=== PATIENT | female | born 1955 | race Caucasian/White ===

== ENCOUNTER 2018-08-30 05:55 | Day surgery (SDC) | payer OTHER ==
--- NOTE | 2018-03-22 07:58 | PREOPHP ---
DATE OF ADMISSION: 03/22/2018 HISTORY OF PRESENT ILLNESS: This is a 62-year-old lady, 4, para 2 with spontaneous and 1 stillborn. Her last normal menstrual period, according to the patient, is in 2016. She was admitted for D and C, hysteroscopy, and suction curettage. This patient was having on-and-off vaginal bleeding; and she is taking control pills since 1993 for this problem; and when the patient came to me, I told her to stop taking the control pills; and because of the bleeding, she had endometrial biopsy attempted but the cervix was stenotic, so she was admitted for the above procedures. The procedures were explained to the patient, and she understood everything totally. The risks, benefits, and alternatives were discussed with her as well. She is 4, para 2 with spontaneous abortions. PAST MEDICAL HISTORY: She has a history of multiple sclerosis. PAST SURGICAL HISTORY: She had breast implant. She had x2. She had back surgery. She had a tummy tuck. FAMILY HISTORY: Cancer, heart disease, diabetes, and hypertension. CURRENT MEDICATIONS: On review of current medications, she is on: 1. ____. 2. Lexapro. 3. Copaxone. REVIEW OF SYSTEMS: CARDIOVASCULAR: No chest pains. RESPIRATORY: No cough. GASTROINTESTINAL: No diarrhea. No vomiting. GENITOURINARY: No dysuria. PHYSICAL EXAMINATION: GENERAL: Reveals a conscious, coherent lady, and in no acute distress. VITAL SIGNS: Her blood pressure 120/80, pulse rate 80 per minute, respirations 16 per minute. BREASTS, HEART, AND LUNGS: Within normal limits. ABDOMEN: Soft. No organomegaly. PELVIC: Revealed the cervix to be firm, uterus of normal size, and adnexa were negative for masses. RECTAL: Exam confirmed the pelvic findings. EXTREMITIES: No pedal edema. ADMITTING DIAGNOSIS: Postmenopausal bleeding. The patient was planned to have a D and C, hysteroscopy, and suction curettage. The procedures were explained to the patient, and she understood everything totally. The risks, benefits, and alternatives were discussed with her as well. Endometrial biopsy, as mentioned, was attempted in the clinic but the cervix was stenotic. Dictated By: MANDO HUDDLESTON/JAYY Conf#: [id number] DID#: [id number] MTDD
[2018-08-29 15:12] VITALS: BMI 28.8
[2018-08-30] VITALS (8 sets, daily range): BP systolic 51–119; BP diastolic 32–65; PULSE 63–78; RESP 16–25; Ht 162.6 cm; Wt 74.2 kg
[~2018-08-30] VITALS: Ht 162.6 cm; Wt 74.2 kg
--- NOTE | 2018-08-30 05:44 | PREOPHP ---
DATE OF ADMISSION: 08/30/2018 HISTORY OF PRESENT ILLNESS: This is a 63-year-old lady 2, para 2. Her last normal menstrual period, according to the patient, was in 08/2017. At 60-year-old that the patient had been on hormo nal replacement therapy given by another doctor. The patient had been on control pills given b y her primary care doctor and, when she stopped the pill, she started to have vaginal bleeding. She had attempted 3 times endometrial biopsy, but the cervix was stenotic and, finally, the patient decid ed to go for the D and C. She was advised to stop any hormonal treatment. PAST PERSONAL HISTORY: No history of TB or asthma. ALLERGIES: NO ALLERGIES. PAST MEDICAL HISTORY: The patient has a history of multiple sclerosis. PAST SURGICAL HISTORY: She has breast implant. She had 2 C-sections. She has a back surgery. She had a tummy tuck, . FAMILY HISTORY: Cancer, heart disease, diabetes and hypertension. She is 2, para 2 with 2 c esarean sections. REVIEW OF SYSTEMS: CARDIOVASCULAR: No chest pains. RESPIRATORY: No cough. GASTROINTESTINAL: No diarrhea, no vomiting. OBSTETRICAL HISTORY: She is 4, para 2, 1 spontaneous , and 1 stillborn at 25 weeks. She had 2 sections. GYNECOLOGIC HISTORY: She had menarche at the age of 13, every 28 days interval, 3 to 4 days duration , and moderate in amount. REVIEW OF SYSTEMS: CARDIOVASCULAR: No chest pains. RESPIRATORY: No cough. GASTROINTESTINAL: No diarrhea, no vomiting. GENITOURINARY: No dysuria. PHYSICAL EXAMINATION: GENERAL: Reveals a conscious, coherent lady, in no acute distress. VITAL SIGNS: Blood pressure 130/80, pulse rate 80 per minute, respirations 16 per minute. BREASTS, HEART AND LUNGS: Within normal limits. ABDOMEN: Soft. No organomegaly. PELVIC: Revealed the cervix to be firm, uterus of normal size, adnexa were negative for masses. RECTAL: Confirmed the pelvic findings. EXTREMITIES: No pedal edema. ADMITTING DIAGNOSIS: Postmenopausal bleeding. The patient was planned to have a dilation and curett age, hysteroscopy and suction curettage. The procedures were explained to the patient and she unders tood everything totally. The risks, benefits and alternatives were discussed with her as well. Dictated By: MANDO HUDDLESTON/JAYY Conf#: [id number] [facility]#: [id number]
[~2018-08-30 05:55] MED LIST: ALPR0.5T PO; ASPI-1044 PO; CRAN450C PO; ESCI10TA PO; GLAT40SY SQ; IBUP800T48 PO; LORA-444 PO; NORE-17 PO; OMEG300C3 PO; SIMV5TAB14 PO; TOPI25CA PO; TRAM100T33 PO
--- NOTE | 2018-08-30 06:47 | PREAC ---
Date/Time of Note Date/Time of Note DATE: 08/30/18 TIME: 06:46 Anesthesia Eval and Record Evaluation Time Pre-Procedure Interview DATE: 08/30/18 TIME: 06:46 Age 63 Sex female NPO: 8 hrs Preoperative diagnosis postmenopausal bleeding Planned procedure D and C, hysteroscopy Past Medical History Past Medical History: Includes Cardio: Dyslipidemia Neuro: Other (multiple sclerosis) Psych: Depression, Anxiety Surgery & Anesthesia Issues No known issue Meds Anticoagulation: No Beta Johanna within 24 hr: No Reason Beta Johanna not given: Pt. not on B-Johanna Reported Medications Glatiramer Acetate (Copaxone) 40 Mg/1 Ml Syringe, 40 MG SQ THREE TIMES/WEEK, SYR 01/07/16 Cranberry Fruit Concentrate (CRANBERRY) 450 Mg Capsule, 450 MG PO, CAP 01/07/16 Seymour-3 Fatty Acids (Fish Oil) 300 Mg Capsule, 300 MG PO, CAP 01/07/16 Norethindrone A-E Estradiol (GILDESS) 1 Each Tablet, 1 EACH PO, TAB 01/07/16 Topiramate* (Topamax*) 25 Mg Cap.sprink, 50 MG PO BID, CAP 01/07/16 Ibuprofen* (Motrin*) 800 Mg Tab, 800 MG PO DAILY, TAB 09/25/13 Aspirin Delayed Release (Aspirin Delayed Release) 81 Mg Tablet.dr, 81 MG PO DAILY 09/25/13 Escitalopram Oxalate* (Lexapro*) 10 Mg Tablet, 10 MG PO DAILY 09/25/13 Simvastatin* (Simvastatin*) 5 Mg Tablet, 5 MG PO DAILY 09/25/13 Alprazolam* (Xanax*) 0.5 Mg Tab, 0.5 MG PO HS, TAB 09/25/13 Lorazepam* (Ativan*) 2 Mg Tablet, 1 MG PO HS 09/25/13 Tramadol Hcl* (Tramadol* ER) 100 Mg Tab.er.24h, 50 MG PO TID, TAB 09/25/13 Meds reviewed: Yes Allergies Coded Allergies: latex (Verified Allergy, Unknown, itching, 08/29/18) Allergies Reviewed: Yes Labs/Studies Labs Reviewed: Reviewed by anesthesiologist Blood Bank Test 08/29/18 14:50 Antibody Screen NEGATIVE Blood Type A POSITIVE test: N/A Studies: ECG Pre-procedure Exam Airway: Adequate mouth opening, Adequate thyromental dist Mallampati: Mallampati II Teeth: Normal Lung: Normal Heart: Normal ASA Physical Status ASA physical status: 2 Emergency: None Planned Anesthetic General/MAC: LMA Planned Pain Management Parenteral pain med, Local by surgeon Pre-operative Attestations Prior to commencing anesthesia and surgery, the patient was re-evaluated, there was verification of: *The patient's identity *The results of appropriate recent lab work and preoperative vital signs *The above evaluation not changing prior to induction *Anesthetic plan, risk benefits, alternative and complications discussed with p atient/family; questions answered; patient/family understands, accepts and wishes to proceed. EMMA HANSEN Aug 30, 2018 06:47
[2018-08-30] MEDS ORDERED: LIDOCAINE 2% (SDV) 5 ML INJ ONE (06:58)
[2018-08-30] MEDS ORDERED: PROPOFOL 20 ML ONE (06:58)
[2018-08-30] MEDS ORDERED: ONDANSETRON 4 MG INJ ONE (06:59)
[2018-08-30] MEDS ORDERED: FENTAnyl 50 MCG/ML VIAL ONE (06:59)
[2018-08-30] MEDS ORDERED: MIDAZOLAM 1 MG/ML 2 ML INJ ONE (06:59)
[2018-08-30] MEDS ORDERED: DEXAMETHASONE 4 MG/ML 5 ML INJ ONE (06:59)
[2018-08-30] MEDS ORDERED: CEFAZOLIN 1 GM INJ ONE (06:59)
[2018-08-30] MEDS ORDERED: SIMV5TAB14 PO (07:11)
[2018-08-30] MEDS ORDERED: TOLT2TAB13 PO (07:11)
[2018-08-30] MEDS ORDERED: ESCI20TA PO (07:12)
[2018-08-30] MEDS ORDERED: HYDR200T5 PO (07:12)
[2018-08-30] MEDS ORDERED: SULF500T5 PO (07:12)
[2018-08-30] MEDS ORDERED: FOLI-49 PO (07:13)
[2018-08-30] MEDS ORDERED: TOPI50TA13 PO (07:14)
[2018-08-30] MEDS ORDERED: GLAT40SY SQ (07:15)
[2018-08-30] MEDS ORDERED: ALPR0.5T PO (07:16)
[2018-08-30] MEDS ORDERED: LABETALOL HCL 20MG INJ IV PRN (07:30)
[2018-08-30] MEDS ORDERED: FENTAnyl 50 MCG/ML VIAL IV PRN ×3 (07:30)
[2018-08-30] MEDS ORDERED: ONDANSETRON 4 MG INJ IV PRN (07:30)
[2018-08-30] MEDS ORDERED: OXYCODONE/ACETAMINOPHEN (5/325) TAB PO PRN ×2 (07:30)
--- NOTE | 2018-08-30 08:08 | SIPON ---
Date/Time of Note Date/Time of Note DATE: 08/30/18 TIME: 08:07 Operative Report Preoperative Diagnosis POSTMENOPAUSAL BLEEDING Postoperative Diagnosis POSTMENOPAUSAL BLEEDING Operation/Procedure Performed D&C HYSTEROSCOPY Surgeon see signature line bakery assistant URBAN DESIGNER Anesthesia: general Estimated blood loss: minimal Transfusion Required none Specimen ECC EMC Grafts/Implants none Complications none MANDO FRANCE MD Aug 30, 2018 08:08
[2018-08-30] MEDS ORDERED: ACETAMINOPHEN 325 MG TAB PO PRN (08:30)
--- NOTE | 2018-08-30 09:14 | PAC ---
Date/Time of Note Date/Time of Note DATE: 08/30/18 TIME: 09:13 Post-Anesthesia Notes Post-Anesthesia Note Last documented vital signs Vital Signs Date Temp Pulse Resp B/P (MAP) Pulse Ox O2 O2 Flow FiO2 Time Delivery Rate 08/30/18 97.9 08:39 08/30/18 76 23 98/51 (67) 93 Room Air 08:14 08/30/18 5.0 07:51 Activity: WNL Respiratory function: WNL Cardiovascular function: WNL Mental status: Baseline Pain reasonably controlled: Yes Hydration appropriate: Yes Nausea/Vomiting absent: Yes EMMA HANSEN Aug 30, 2018 09:14
--- NOTE | 2018-08-30 20:35 | OPR ---
DATE OF OPERATION: 08/30/2018 PREOPERATIVE DIAGNOSES: 1. Postmenopausal bleeding. 2. Small fibroid. POSTOPERATIVE DIAGNOSES: 1. Postmenopausal bleeding. 2. Small fibroid. 3. Pending pathology report. SURGEON: Mando Linton MD INTERMEDIATE MANAGER: Sandhya de jesus. ANESTHESIA: General. OPERATION PERFORMED: Hysteroscopy, fractional dilatation and curettage. OPERATIVE TECHNIQUE: Under general anesthesia, the patient was prepped and draped in the usual fashi on for vaginal surgery. Pelvic exam under anesthesia revealed the cervix to be firm, uterus of mando l size and adnexa were negative for masses. Then, the heavyweight vaginal retractor was put in place and the anterior lip of the cervix was grasped with an Allis clamp and endocervical dilatation up to Hegar 4 was proceeded. Uterus was sounded to about 2-1/2 inches. Then the hysteroscope was inserte d inside the uterine cavity and connected with the light source and distended with normal saline. Th ere were no polyps, no fibroids seen. The uterine lining was noted to be very pale looking. Endomet rial curettage was done and very small amount of tissue was obtained. The uterus was intact during a nd after the procedure. The patient tolerated the procedure well. Estimated blood loss was minimal. Vital signs were stable during and after the procedure. Dictated By: MANDO HUDDLESTON/JAYY Conf#: [id number] DID#: [id number]
== END 2018-08-30 09:35 | disposition home or self-care (01) ==
LOC: SDS 05:55
PROVIDERS: ATTEND Obstetrics & Gynecology
DX: N95.0 Postmenopausal bleeding (principal); D25.9 Leiomyoma of uterus, unspecified; G35 Multiple sclerosis; E78.5 Hyperlipidemia, unspecified
CPT/HCPCS: 58558; 84702; 86850; 86900; 86901; 88305; J1100; J2250; J2405; J3010; Z7512; Z7610; J0690

== ENCOUNTER 2019-04-06 09:36 | Day surgery (SDC) | payer OTHER ==
[~2019-04-06] VITALS: Ht 162.6 cm; Wt 76.1 kg
[2019-04-06] VITALS (8 sets, daily range): BP systolic 116–126; BP diastolic 51–70; PULSE 80–90; RESP 16–36; Ht 162.6 cm; Wt 76.1 kg
[~2019-04-06 09:36] MED LIST changes: -ASPI-1044 PO; -CRAN450C PO; -ESCI10TA PO; +ESCI20TA PO; +FOLI-49 PO; +GLIM4TAB55 PO; +HYDR200T5 PO; -IBUP800T48 PO; -LORA-444 PO; -NORE-17 PO; -OMEG300C3 PO; +SULF500T5 PO; +TOLT2TAB13 PO; -TOPI25CA PO; +TOPI50TA13 PO; -TRAM100T33 PO
[2019-04-06] MEDS ORDERED: LIDOCAINE 1% (MPF) 30 ML INJ ONE (11:54)
[2019-04-06] MEDS ORDERED: METHYLPREDNISOLONE ACET 80 MG/ML 1 ML ONE (11:55)
[2019-04-06] MEDS ORDERED: MIDAZOLAM 1 MG/ML 2 ML INJ ONE (12:20)
[2019-04-06] MEDS ORDERED: ONDANSETRON 4 MG INJ IV STA (12:56)
[2019-04-06] MEDS ORDERED: DIPHENHYDRAMINE 50 MG INJ IV ONE (13:00)
[2019-04-06] MEDS ORDERED: LORATADINE 10 MG TAB PO ONE (13:00)
[2019-04-06] MEDS ORDERED: DIPHENHYDRAMINE 50 MG INJ ONE (13:02)
== END 2019-04-06 14:02 | disposition home or self-care (01) ==
LOC: SDS 09:36
PROVIDERS: ATTEND Specialist
DX: M51.16 Intervertebral disc disorders with radiculopathy, lumbar region (principal); G35 Multiple sclerosis
CPT/HCPCS: 62323; 72020; J1040; J1200; J2250; J3010; Z7512; Z7610